=== PATIENT | female | born 1940 | race Hispanic/Latino ===

== ENCOUNTER 2017-04-16 09:47 | Outpatient (CLI) | payer MEDICARE ==
--- NOTE | 2017-04-16 10:07 | XRay Report ---
CHEST TWO VIEWS: 04/16/17 09:47:00 CLINICAL: Non-Hodgkin's lymphoma. COMPARISON: None FINDINGS: Mild cardiomegaly and mild central vascular prominence. The lungs are normally expanded and clear. No pulmonary nodule or mass. A left [id number] tip is in the right atrium at the cavoatrial junction. Degenerative change in the spine. IMPRESSION: Mild cardiomegaly but no CHF. No acute cardiopulmonary process.
== END 2017-04-16 09:48 | disposition home or self-care (01) ==
LOC: SPVIMAG 09:47
PROVIDERS: ATTEND Internal Medicine Hematology & Oncology
DX: I51.7 Cardiomegaly (principal); J98.4 Other disorders of lung; M47.894 Other spondylosis, thoracic region; C85.99 Non-Hodgkin lymphoma, unspecified, extranodal and solid organ sites; D80.1 Nonfamilial hypogammaglobulinemia
CPT/HCPCS: 71046